=== PATIENT | female | born 1975 | race Caucasian/White ===

== ENCOUNTER 2018-09-24 06:52 | Day surgery (SDC) | payer BC ==
[2018-09-20 10:10] VITALS: BMI 24.0
[2018-09-24] MEDS ORDERED: LIDOCAINE 1%-EPI 1:100,000 30 ML MDV IJ ONE (07:28)
[2018-09-24] MEDS ORDERED: BACITRACIN 15 GM TUBE TOPICAL OINTMENT ONE (07:29)
[2018-09-24] MEDS ORDERED: COCAINE HCL 4% TOPICAL SOLUTION 4 ML BOTTLE TP ONE ×2 (07:30→08:35)
--- NOTE | 2018-09-24 07:52 | HP ---
Admitting History and Physical - Primary Care Physician PCP: Florencio Willis - Admission Chief Complaint: Nasal blockage History of Present Illness: Years of increasing nasal polyps and sinusitis, blocking nasal breathing. Cougar , abx and steroids have failed to resolve her breathing problem History Source: Patient, Medical Record Limitations to Obtaining History: No Limitations - Past Medical History CREDIT COUNSELOR: No: Alzheimer's, CVA, Dementia, Migraine, Multiple Sclerosis, Peripheral Neuropathy, Parkinson's, Seizure, Syncope, TIA, Vertigo, Other Cardiovascular: No: AFIB, Aneurysm, Aortic Insufficiency, Aortic Stenosis, CAD, CHF, Deep Vein Thrombosis, HTN, Hyperlipdemia, RI, Mitral Insufficiency, Mitral Stenosis, Murmur, Pulmonary Hypertension, Other Pulmonary: No: Asthma, Bronchitis, Cancer, COPD, O2 Dependent, Pneumonia, Previously Intubated, Pulmonary Embolus, Pulmonary Fibrosis, Sleep Apnea, Other Gastrointestinal: No: Ascites, Cancer, Constipation, Crohn's Disease, Diverticulitis, Diverticulosis, Esophageal Varices, Gastritis, GERD, GI Bleed, Hemorrhoids, Hiatal Hernia, Inflamatory Bowel Disease, Irritable Bowel Disease, Pancreatitis, Peptic Ulcer Disease, Ulcerative Colitis, Other Hepatobiliary: No: Cirrhosis, Cholelithiasis, Cholecystitis, Choledocholithiasis , Hepatitis A, Hepatitis B, Hepatitis C, Other Renal/: No: Renal Failure, Renal Inusuff, BPH, Cancer, Hematuria, Hemodialysis , Neurogenic Bladder, Renal Calculi, UTI, Other Reproductive: No: Ectopic , Endometriosis, Fibroids, PID, Polycystic Ovary Syndrome, Postmenopausal, Other ...LMP: 09/11/18 - Smoking History Smoking history: Never smoked Have you smoked in the past 12 months: No - Alcohol/Substance Use Hx Alcohol Use: Yes (occas) Home Medications - Allergies Allergies/Adverse Reactions: Allergies Allergy/AdvReac Type Severity Reaction Status Date / Time No Known Drug Allergies Allergy Verified 09/24/18 07:11 - Home Medications Home Medications: Ambulatory Orders NK [No Known Home Medication] 09/20/18 Physical Examination Vital Signs: Vital Signs Temperature 97.9 F 09/24/18 07:22 Pulse Rate 66 09/24/18 07:22 Respiratory Rate 16 09/24/18 07:22 Blood Pressure 107/56 L 09/24/18 07:22 O2 Sat by Pulse Oximetry (%) Constitutional: Yes: Well Nourished, No Distress, Calm Eyes: Yes: WNL HENT: Yes: Nasal Congestion Neck: Yes: WNL Cardiovascular: Yes: WNL Respiratory: Yes: WNL Gastrointestinal: Yes: WNL Musculoskeletal: Yes: WNL Extremities: Yes: WNL Imaging - Results Cat Scan: Report Reviewed, Image Reviewed (extensive polyps and pansinusitis) Problem List - Problems (1) Nasal polyps Code(s): J33.9 - NASAL POLYP, UNSPECIFIED (2) Pansinusitis Assessment/Plan: for surgical improvement Code(s): J32.4 - CHRONIC PANSINUSITIS Qualifiers: Chronicity: chronic Qualified Code(s): J32.4 - Chronic pansinusitis
[2018-09-24] MEDS ORDERED: LIDOCAINE HCL/PF 2% SDV 5ML VIAL ONE (08:17)
[2018-09-24] MEDS ORDERED: PROPOFOL 20 ML ONE (08:17)
[2018-09-24] MEDS ORDERED: ROCURONIUM BROMIDE 50 MG/5 ML VIAL ONE (08:17)
[2018-09-24] MEDS ORDERED: DEXAMETHASONE SOD PHOSPHATE 4 MG/1 ML VIAL ONE (08:17)
[2018-09-24] MEDS ORDERED: KETOROLAC TROMETHAMINE 30 MG/1 ML VIAL ONE (08:17)
[2018-09-24] MEDS ORDERED: ceFAZolin SODIUM 1 GM VIAL IVPB ONE (08:32)
[2018-09-24] MEDS ORDERED: LIDOCAINE 1%/EPI 1:100000 (20 ML MULTI DOSE VIAL) IJ ONE (08:35)
[2018-09-24] MEDS ORDERED: MIDAZOLAM HCL 2 MG/2 ML SINGLE DOSE VIAL ONE (09:08)
[2018-09-24] MEDS ORDERED: BACITRACIN 50,000 UNITS VIAL TP ONE (09:12)
[2018-09-24] MEDS ORDERED: TRIAMCINOLONE ACET 40MG/1ML VIAL ONE (09:16)
[2018-09-24] MEDS ORDERED: TRIAMCINOLONE ACET 40MG/1ML VIAL NR ONE (09:18)
[2018-09-24] MEDS ORDERED: NEOSTIGMINE METHYLSULFATE 0.5 MG/ML - 10 ML MDV ONE (09:25)
[2018-09-24] MEDS ORDERED: oxyCODONE HCL 5 MG TABLET PO PRN (09:43)
[2018-09-24] MEDS ORDERED: PROMETHAZINE HCL 25 MG/1 ML VIAL IVPB PRN (09:43)
[2018-09-24] MEDS ORDERED: ONDANSETRON 4 MG/2 ML VIAL IVPUSH PRN (09:43)
[2018-09-24 11:15] VITALS: BP 109/66; PULSE 63; TEMP 98.2
--- NOTE | 2018-09-25 15:38 | PATH ---
Surgical Pathology Report Patient Name: KENNETH DEL ROSARIO [facility]. Rec. #: [id number] /Age/Gender: 1975 (Age: 42) / F Account: [id number] Location: [facility] Taken: 09/24/2018 Received: 09/24/2018 Reported: 09/25/2018 Physicians: Shahzad Sorto M.D. Specimen(s) Received A: LEFT NASAL POLYP B: RIGHT NASAL POLYP C: NASAL ETHMOID MAXILLARY TISSUE BILATERAL POLYP Clinical History Hypertrophy of nasal turbinates Final Diagnosis A. NASAL POLYP, LEFT, BILATERAL TURBINATE CAUTERY, DILATION OF FRONTAL SINUS, ANTERIOR ETHMOIDECTOMY: NASAL (INFLAMMATORY) POLYP. B. NASAL POLYP, RIGHT, BILATERAL TURBINATE CAUTERY, DILATION OF FRONTAL SINUS, ANTERIOR ETHMOIDECTOMY: NASAL (INFLAMMATORY) POLYP(S). C. NASAL ETHMOID MAXILLARY POLYPS, BILATERAL TURBINATE CAUTERY, DILATION OF FRONTAL SINUS, ANTERIOR ETHMOIDECTOMY: NASAL (INFLAMMATORY) POLYP(S). Electronically Signed Iraida Escalera M.D. Gross Description A. Received in formalin labeled "left nasal polyp," is a 0.8 x 0.7 x 0.2 cm diamond, polypoid portion of soft tissue. The specimen is submitted in toto in one cassette. B. Received in formalin labeled "right nasal polyps," are 3 diamond-yellow, polypoid portions of soft tissue ranging from 0.7 x 0.5 x 0.2 cm to 1.7 x 0.6 x 0.2 cm. The specimens are submitted in toto in one cassette. C. Received in formalin labeled "nasal ethmoid maxillary polyps," is a 3.4 x 3.0 x 0.2 cm of diamond-brown soft tissue fragments admixed with mucus. The formalin is filtered and the specimen is entirely submitted in one cassette. 09/24/201809/24/2018
--- NOTE | 2018-10-12 14:02 | OP ---
DATE OF OPERATION: 09/24/2018 SURGEON: Shahzad Sorto MD PREOPERATIVE DIAGNOSIS: Chronic sinusitis, nasal polyposis, turbinate hypertrophy. POSTOPERATIVE DIAGNOSIS: Chronic sinusitis, nasal polyposis, turbinate hypertrophy. PROCEDURE: Bilateral endoscopic ethmoidectomy and bilateral maxillary antrostomy with tissue removal and bilateral turbinate cautery and outfracture and sinus navigation. COMPLICATIONS: There are no complications. INDICATIONS FOR THIS PROCEDURE: This is a woman with refractory sinusitis and very large nasal polyps. Previous treatments included allergy medication, steroids, antibiotics. CT scan findings show extensive sinusitis and nasal polyps. PROCEDURE FOLLOWS: Patient was brought into the operating room and placed under general anesthesia. Her nose was decongested with 4% cocaine on Cottonoid pledgets, and her nose was injected with 1% lidocaine with 1:100,000 epinephrine. I injected the polyps, lateral nasal wall, inferior turbinates, parts in the septum. Then, the patient was prepped and draped, and a [employer] Sinus Navigation instrument was placed on and calibrated. Her nose was examined using a 0 degree endoscope. Polyps were very, very large on the right side and also fairly large on the left side. Using the guided [employer] 4-mm straight blade, straight-shot type, microdebrider, the polyps were removed from anterior to posterior, from inferior to superior. Polyps were noted emanating partly from the middle turbinate, partly from the middle meatus. The polyps were followed into the middle meatus. The middle turbinate was medialized. A straight suction was used to break up some ethmoid cells and continued exenteration of polyps extended into the ethmoid also through the ground lamella into the posterior ethmoid cavity. This was continued laterally towards the ostia of the maxillary sinus. Cannulation of the ostia and maxillary sinus was performed with a [employer] maxillary balloon. The balloon was dilated twice for 5 seconds a piece. The ostia were examined with the 30 degree endoscope and polypoid tissue was noted coming from within the maxillary ostia. This was removed using the microdebrider. A portion of the posterior ostia and inferior portion of the ostia were widened using the microdebrider, as well. At that point, cocaine pledget was placed into the ethmoid cavity, and the left side was examined. Using the straight microdebrider in a guided fashion, the polyps were removed from anterior to posterior, from inferior to superior. Polyps were noted coming from the middle turbinate and within the middle meatus of note some separate pieces of polyps were removed with a Blakesley forceps. This was also performed on the right side before moving to the left side, as well, in areas where a larger polyp was just dangling separate from the body of the greater mass of polyps. On the left side the dissection was carried also through the ground lamella breaking up the ethmoid cells with straight suction. The dissection was carried laterally and the ostia of the maxillary sinus was widened using the balloon device after cannulating it. It was inflated twice for 5 seconds a piece, and also polyp tissue around the ostia was resected using the microdebrider and portions of the ostia were widened with the microdebrider posteriorly and inferiorly. After removing the polypoid tissue, a 4% cocaine pledget was placed in the ethmoid sinus. Inferior turbinates were outfractured using a long needle speculum first on the left side, then, the right side, and then, 3 passes with an Elmed bipolar were performed on the left inferior turbinate and then the right inferior turbinate. After suctioning the nose and irrigating the maxillary sinuses, NasoPore packing was placed in both ethmoid sinuses, standard packing was placed. Then, the packing was injected with Kenalog 0.5 mL on each side. The patient was then extubated and brought to the recovery room in stable condition. Ti [id number]
== END 2018-09-24 11:30 | disposition home or self-care (01) ==
LOC: JASU-SURG 06:52
PROVIDERS: ATTEND Otolaryngology
PROC: 09BV8ZZ Excision of Left Ethmoid Sinus, Via Natural or Artificial Opening Endoscopic (ICD-10-PCS; 2018-09-24)
PROC: 09BU8ZZ Excision of Right Ethmoid Sinus, Via Natural or Artificial Opening Endoscopic (ICD-10-PCS; 2018-09-24)
PROC: 8E09XBG Computer Assisted Procedure of Head and Neck Region, With Computerized Tomography (ICD-10-PCS; 2018-09-24)
PROC: 095L8ZZ Destruction of Nasal Turbinate, Via Natural or Artificial Opening Endoscopic (ICD-10-PCS; 2018-09-24)
PROC: 8E09XBZ Computer Assisted Procedure of Head and Neck Region (ICD-10-PCS; principal; 2018-09-24 08:00)
DX: J32.9 Chronic sinusitis, unspecified (principal); J33.8 Other polyp of sinus; J34.3 Hypertrophy of nasal turbinates
CPT/HCPCS: 84703; 88304-TC; 94760